=== PATIENT | male | born 1965 | race Caucasian/White ===

== ENCOUNTER 2021-08-28 08:15 | Day surgery (SDC) | payer MEDICAID ==
[2021-08-21 14:47] LABS: BASOPHILS # (AUTO) 0.1 X10'3 (0-0.2); EOSINOPHILS # (AUTO) 0.5 X10'3 (0-0.9); EOSINOPHILS % (AUTO) 5.5 % (0-6); LYMPHOCYTES # (AUTO) 3.2 X10'3 (1.1-4.8); LYMPHOCYTES % (AUTO) 35.8 % (21-51); MEAN CORPUSCULAR HEMOGLOBIN 35.6 PG (27.0-31.0); MEAN CORPUSCULAR HGB CONC 34.1 g/dL (33.0-36.5); MEAN CORPUSCULAR VOLUME 104.5 FL (78-98); MEAN PLATELET VOLUME 9.2 FL (7.4-10.4); MONOCYTES # (AUTO) 0.9 X10'3 (0-0.9); MONOCYTES % (AUTO) 10.3 % (2-12); NEUTROPHILS # (AUTO) 4.2 X10'3 (1.8-7.7); NEUTROPHILS % (AUTO) 47.4 % (42-75); PRE OP HEMATOCRIT 48.5 % (42.0-52.0); PRE OP HEMOGLOBIN 16.5 g/dL (14.0-17.9); PRE OP PLATELET COUNT 244 X10'3 (140-440); RED BLOOD COUNT 4.64 X10'6 (4.70-6.10); RED CELL DISTRIBUTION WIDTH 14.1 % (11.5-14.5)
[2021-08-21 14:58] LABS: ALBUMIN 3.6 G/DL (3.4-5.0); ALBUMIN/GLOBULIN RATIO 0.8 (1.1-1.5); ALKALINE PHOSPHATASE 79 IU/L (46-116); BLOOD UREA NITROGEN 8 MG/DL (7-18); BUN/CREATININE RATIO 8.5 (5.4-32.0); CALCIUM 8.8 MG/DL (8.5-10.1); CHLORIDE 107 MMOL/L (99-107); CREATININE 0.94 MG/DL (0.60-1.10); PRE OP ALT 79 U/L (30-65); PRE OP ANION GAP 12 (8-16); PRE OP BILIRUB, TOTAL 0.7 MG/DL (0.0-1.0); PRE OP GLUCOSE 101 MG/DL (70-104); PRE OP SODIUM 143 MMOL/L (135-145); TOTAL CARBON DIOXIDE 23.6 MMOL/L (24-32); TOTAL PROTEIN 7.9 G/DL (6.4-8.2); eGFR 82 ML/MIN
[2021-08-21 15:05] LABS: PRE OP AST 75 U/L (10-37); PRE OP POTASSIUM 4.2 MMOL/L (3.4-5.1)
[~2021-08-28] VITALS: Ht 182.9 cm; Wt 120.0 kg
[2021-08-28] VITALS (7 sets, daily range): BP systolic 115–128; BP diastolic 65–91
[~2021-08-28 08:15] MED LIST: ASPI-611 PO; ceFAZolin inj. 3,000 MG in normal saline 100ml IV soln 100 ML IV ONE; famotidine 20mg tablet PO ONE; ringers solution, lacted 1,000 ML IV SCH; vancomycin 1,500 MG in NS 300ml IV soln IV ONE
[2021-08-28] MEDS ORDERED: triamcinolone acetonide 40mg/ml inj ONE (10:39)
[2021-08-28] MEDS ORDERED: BUPIVAcaine/PF 2.5 mg/ml (0.25%) 30ml vial ONE (10:39)
[2021-08-28] MEDS ORDERED: morphine 4 MG/ML inj SYRINge IV PRN (10:50)
[2021-08-28] MEDS ORDERED: ondansetron/PF 4mg/2ml inj IV PRN (10:50)
[2021-08-28] MEDS ORDERED: proCHLORperazine 10 MG/2 ml inj IV PRN (10:50)
[2021-08-28] MEDS ORDERED: meperidine/PF 25mg/ml syringe IV PRN ×3 (10:50)
[2021-08-28] MEDS ORDERED: ringers solution, lacted 1,000 ML IV SCH (10:50)
[2021-08-28] MEDS ORDERED: morphine 2 MG/ML inj. syringe IV PRN (10:50)
[2021-08-28] MEDS ORDERED: fentaNYL/PF 50MCG/1 ML 2ML syringe ONE (10:52)
[2021-08-28] MEDS ORDERED: midazolam 1 mg/ML 2ml injection ONE (10:57)
[2021-08-28] MEDS ORDERED: LIDOcaine 2% (20mg/ml) 5ml vial ONE (10:59)
[2021-08-28] MEDS ORDERED: propofol inj 20 ML IV ONE (10:59)
[2021-08-28] MEDS ORDERED: ondansetron/PF 4mg/2ml inj ONE (11:31)
[2021-08-28] MEDS ORDERED: dexamethasone sod phosphate 4mg/ml inj. ONE (11:31)
[2021-08-28] MEDS ORDERED: metoprolol tartrate 1mg/ml inj IV ONE (11:31)
[2021-08-28] MEDS ORDERED: esmolol inj. 10 ML IV ONE (11:31)
--- NOTE | 2021-08-28 11:54 | NUR ---
Received from OR via OPAL , accompanied by Anesthesiologist NORA and report given by Anesthesiolgist. 10L MASK ON WITH 100% SATURATIONS. VSS. DENIES PAIN. BIAS DRESSING RIGHT KNEE WITH +DP. PWD TOES. Addendum: 08/28/21 at 1216 by Yair Kinsey RN, RN Amended: Links added.
--- NOTE | 2021-08-28 12:44 | NUR ---
ALL DC CRITERIA FOR HOME HAS BEEN MET. IV OUT WITHOUT COMPLICATIONS. DENIES PAIN. VSS. DRESSING IS CDI. Addendum: 08/28/21 at 1250 by Yair Kinsey RN, RN Amended: Links added.
== END 2021-08-28 12:44 | disposition home or self-care (01) ==
LOC: PAS 08:15
PROVIDERS: ATTEND Orthopaedic Surgery
DX: S83.231A Complex tear of medial meniscus, current injury, right knee, initial encounter (principal); S83.271A Complex tear of lateral meniscus, current injury, right knee, initial encounter; M94.261 Chondromalacia, right knee; M17.0 Bilateral primary osteoarthritis of knee; I10 Essential (primary) hypertension; E78.5 Hyperlipidemia, unspecified; I48.91 Unspecified atrial fibrillation; E66.01 Morbid (severe) obesity due to excess calories; Z68.36 Body mass index [BMI] 36.0-36.9, adult; F17.210 Nicotine dependence, cigarettes, uncomplicated; Z72.89 Other problems related to lifestyle; Z20.822 Contact with and (suspected) exposure to COVID-19; Z79.899 Other long term (current) drug therapy; X58.XXXA Exposure to other specified factors, initial encounter; Y93.89 Activity, other specified; Y92.89 Other specified places as the place of occurrence of the external cause; Y99.8 Other external cause status
CPT/HCPCS: 29873; 29879; 29880; 36415; 80053; 82948; 85025; J0690; J1100; J2001; J2250; J2405; J2704; J3010; J3301; J3370; J3490; J7040; U0003; U0005; Z7506; Z7508; Z7512; A4215; A4618; A6250; A6449; A7000; J7120